=== PATIENT | male | born 1960 | race Caucasian/White ===

== ENCOUNTER 2018-05-12 14:21 | Outpatient (REF) | payer MEDICAID, SELFPAY ==
[2018-05-12 21:05] LABS: BUN 10 mg/dL (7-18); CREATININE 1.01 mg/dL (0.70-1.30); Calcium 9.1 mg/dL (8.5-10.1); Chloride 106 mmol/L (98-107); Cholesterol 171 mg/dL (50-200); Glucose 78 mg/dL (70-100); HDL Cholesterol 33 mg/dL (40-60); LDL CHOLESTEROL 113 mg/dL (<100); Sodium 142 mmol/L (136-145); Triglyceride 158 mg/dL (30-150)
[2018-05-16 12:07] LABS: PSA, Screening 9.3 ng/ml (0-3.5)
== END 2018-05-12 14:41 ==
LOC: NCHCN 14:21
PROVIDERS: PCP Specialist/Technologist Athletic Trainer; Visit Provider Specialist/Technologist Athletic Trainer
DX: E78.5 Hyperlipidemia, unspecified (principal); Z79.899 Other long term (current) drug therapy
CPT/HCPCS: 80048; 80061; 83721; 84153

== ENCOUNTER 2018-07-26 11:24 | Outpatient (REF) | payer MEDICAID, SELFPAY ==
[2018-07-28 19:22] LABS: Free PSA/PSA Ratio 0.16 ratio
== END 2018-07-26 11:44 ==
LOC: NCHCN 11:24
PROVIDERS: PCP Specialist/Technologist Athletic Trainer; Visit Provider Specialist/Technologist Athletic Trainer
DX: R97.20 Elevated prostate specific antigen [PSA] (principal)
CPT/HCPCS: 84154

== ENCOUNTER 2019-09-06 13:36 | Outpatient (REF) | payer MEDICAID, SELFPAY ==
[2019-09-06 20:43] LABS: Anion Gap 11.7 mmol/L (3-11); BUN 11 mg/dL (7-18); CO2 26.3 mmol/L (21.0-32.0); CREATININE 0.92 mg/dL (0.70-1.30); Calcium 9.8 mg/dL (8.5-10.1); Chloride 105 mmol/L (98-107); Glucose 107 mg/dL (74-106); Potassium 4.2 mmol/L (3.5-5.1); Sodium 143 mmol/L (136-145); TSH 1.89 uIU/mL (0.36-3.74)
[2019-09-06 21:07] LABS: Abs Immature Grans 0.02 k/cumm (0.0-0.09); Absolute Basophil Count 0.03 k/cumm (0.0-0.2); Absolute Eosinophil Count 0.09 k/cumm (0.0-0.7); Absolute Lymphocyte Count 1.78 k/cumm (1.2-3.4); Absolute Monocyte Count 0.58 k/cumm (0.11-0.7); Absolute Neutrophil Count 5.81 k/cumm (1.2-6.7); Basophils % 0.4; Eosinophils % 1.1; HCT 46.2 % (40.0-50.0); HGB 15.5 g/dL (13.5-17.5); Immature Grans % 0.2 %; Lymphocytes % 21.4; Mean Corp. HGB Concentration 33.5 g/dL (32.0-36.0); Mean Corpuscular Hemoglobin 30.6 pg (27.0-33.0); Mean Corpuscular Volume 91.3 fL (80-95); Mean Platelet Volume 11.4 fL (8.0-11.0); Neutrophils % 69.9; Platelet Count 214 x1000/uL (130-400); RBC 5.06 m/cumm (4.50-6.00); RBC Distribution Width 12.7 % (11.8-14.1); White Blood Cell Count 8.31 k/cumm (4.4-10.8)
== END 2019-09-06 13:56 ==
LOC: NCHCN 13:36
PROVIDERS: PCP Specialist/Technologist Athletic Trainer; Visit Provider Nurse Practitioner Psychiatric/Mental Health
DX: F31.4 Bipolar disorder, current episode depressed, severe, without psychotic features (principal); Z51.81 Encounter for therapeutic drug level monitoring
CPT/HCPCS: 80048; 84443; 85025

== ENCOUNTER 2019-09-27 21:58 | Outpatient (REF) | payer MEDICAID, SELFPAY ==
[2019-09-27 22:05] LABS: Anion Gap 12.8 mmol/L (3-11); BUN 12 mg/dL (7-18); CO2 23.2 mmol/L (21.0-32.0); CREATININE 1.05 mg/dL (0.70-1.30); Calcium 9.2 mg/dL (8.5-10.1); Chloride 106 mmol/L (98-107); Glucose 158 mg/dL (74-106); Potassium 4.2 mmol/L (3.5-5.1); Sodium 142 mmol/L (136-145)
== END 2019-09-27 22:18 ==
LOC: NCHCN 21:58
PROVIDERS: PCP Specialist/Technologist Athletic Trainer; Visit Provider Nurse Practitioner Family
DX: I10 Essential (primary) hypertension (principal)
CPT/HCPCS: 80048

== ENCOUNTER 2019-10-04 12:57 | Outpatient (REF) | payer MEDICAID, SELFPAY ==
[2019-10-04 20:20] LABS: VALPROIC ACID 50.8 ug/mL (50-100)
== END 2019-10-04 13:17 ==
LOC: NCHCN 12:57
PROVIDERS: PCP Specialist/Technologist Athletic Trainer; Visit Provider Nurse Practitioner Psychiatric/Mental Health
DX: Z51.81 Encounter for therapeutic drug level monitoring (principal)
CPT/HCPCS: 80164

== ENCOUNTER 2019-12-22 13:34 | Outpatient (REF) | payer MEDICAID, SELFPAY ==
[2019-12-22 19:16] LABS: Abs Immature Grans 0.04 k/cumm (0.0-0.09); Absolute Basophil Count 0.02 k/cumm (0.0-0.2); Absolute Eosinophil Count 0.27 k/cumm (0.0-0.7); Absolute Lymphocyte Count 2.78 k/cumm (1.2-3.4); Absolute Monocyte Count 0.93 k/cumm (0.11-0.7); Absolute Neutrophil Count 3.23 k/cumm (1.2-6.7); Basophils % 0.3; Eosinophils % 3.7; HCT 40.1 % (40.0-50.0); HGB 13.3 g/dL (13.5-17.5); Immature Grans % 0.6 %; Lymphocytes % 38.2; Mean Corp. HGB Concentration 33.2 g/dL (32.0-36.0); Mean Corpuscular Hemoglobin 31.7 pg (27.0-33.0); Mean Corpuscular Volume 95.7 fL (80-95); Mean Platelet Volume 11.2 fL (8.0-11.0); Monocytes % 12.8; Neutrophils % 44.4; Platelet Count 199 x1000/uL (130-400); RBC 4.19 m/cumm (4.50-6.00); RBC Distribution Width 12.8 % (11.8-14.1); White Blood Cell Count 7.27 k/cumm (4.4-10.8)
[2019-12-22 19:24] LABS: VALPROIC ACID 41.7 ug/mL (50-100)
== END 2019-12-22 13:54 ==
LOC: NCHCN 13:34
PROVIDERS: PCP Specialist/Technologist Athletic Trainer; Visit Provider Nurse Practitioner Psychiatric/Mental Health
DX: F31.61 Bipolar disorder, current episode mixed, mild (principal); Z79.899 Other long term (current) drug therapy; Z51.81 Encounter for therapeutic drug level monitoring
CPT/HCPCS: 80164; 85025

== ENCOUNTER 2020-02-23 13:23 | Outpatient (REF) | payer MEDICAID, SELFPAY ==
[2020-02-23 19:16] LABS: Iron 105 ug/dL (65-175)
[2020-02-23 20:10] LABS: Folate 16.8 ng/mL (8.6-20.0); TSH (W/Ref FT4) 2.03 uIU/mL (0.36-3.74); Vitamin B12 324 pg/mL (193-986)
[2020-02-25 18:42] LABS: T3,Free 3.6 pg/mL (2.8-5.3)
[2020-02-26 08:31] LABS: Vitamin D 25 Total 58.7 ng/ml (30-100)
== END 2020-02-23 13:43 ==
LOC: NCHCN 13:23
PROVIDERS: PCP Specialist/Technologist Athletic Trainer; Visit Provider Nurse Practitioner Psychiatric/Mental Health
DX: F31.61 Bipolar disorder, current episode mixed, mild (principal)
CPT/HCPCS: 82306; 82607; 82746; 83540; 84443; 84481

== ENCOUNTER 2020-04-12 12:06 | Outpatient (REF) | payer MEDICAID, SELFPAY ==
[2020-04-12 19:06] LABS: Abs Immature Grans 0.03 10^3/uL (0.0-0.06); Absolute Basophil Count 0.04 10^3/uL (0.0-0.2); Absolute Eosinophil Count 0.18 10^3/uL (0.0-0.7); Absolute Lymphocyte Count 2.59 10^3/uL (1.2-3.4); Absolute Monocyte Count 0.63 10^3/uL (0.1-0.8); Absolute Neutrophil Count 5.52 10^3/uL (1.2-6.7); Basophils % 0.4; HGB 15.3 g/dL (13.5-17.5); Immature Grans % 0.3; Lymphocytes % 28.8; MCH 30.1 pg (27.0-33.0); MCHC 33.3 % (32.0-36.0); MCV 90.6 fL (80-95); MPV 11.6 fL (8.0-11.0); Neutrophils % 61.5; Nucleated RBC 0 %; Platelet Count 226 10^3/uL (130-400); RBC 5.08 10^6/uL (4.36-5.78); RDW 12.2 % (11.8-14.1); RDW-SD 40.5 fL; WBC 8.99 10^3/uL (4.4-10.8)
[2020-04-12 19:32] LABS: ALT 37 U/L (16-63); AST 21 U/L (15-37); Albumin 4.4 g/dL (3.4-5.0); Alkaline Phosphatase 80 U/L (46-116); Anion Gap 12.4 mmol/L (3-11); BUN 11 mg/dL (7-18); Bilirubin, Total 0.4 mg/dL (0.2-1.0); CO2 25.6 mmol/L (21.0-32.0); CREATININE 1.15 mg/dL (0.70-1.30); Calcium 9.6 mg/dL (8.5-10.1); Chloride 102 mmol/L (98-107); Glucose 101 mg/dL (74-106); Potassium 4.1 mmol/L (3.5-5.1); Sodium 140 mmol/L (136-145); Total Protein 7.2 g/dL (6.4-8.2)
== END 2020-04-12 12:26 ==
LOC: NCHCN 12:06
PROVIDERS: PCP Specialist/Technologist Athletic Trainer; Visit Provider Nurse Practitioner Family
DX: Z51.81 Encounter for therapeutic drug level monitoring (principal); Z79.899 Other long term (current) drug therapy
CPT/HCPCS: 80053; 85025

== ENCOUNTER 2020-05-20 18:21 | Outpatient (REF) | payer MEDICAID, SELFPAY ==
[2020-05-20 20:41] LABS: ALT 37 U/L (16-63); AST 16 U/L (15-37); HDL Cholesterol 29 mg/dL (40-60); LDL CHOLESTEROL 76 mg/dL (<100)
[2020-05-20 21:17] LABS: Creatine Kinase 192 U/L (39-308)
== END 2020-05-20 18:41 ==
LOC: NCHCN 18:21
PROVIDERS: Nurse Practitioner Family; PCP Specialist/Technologist Athletic Trainer; Visit Provider Family Medicine
DX: I10 Essential (primary) hypertension (principal); E78.5 Hyperlipidemia, unspecified
CPT/HCPCS: 82550; 83721; 83718; 84450; 84460

== ENCOUNTER 2020-09-10 11:19 | Outpatient (REF) | payer MEDICAID, SELFPAY ==
[2020-09-10 15:52] LABS: Abs Immature Grans 0.03 10^3/uL (0.0-0.06); Absolute Basophil Count 0.06 10^3/uL (0.0-0.2); Absolute Eosinophil Count 0.15 10^3/uL (0.0-0.7); Absolute Monocyte Count 0.63 10^3/uL (0.1-0.8); Basophils % 0.7; Eosinophils % 1.8; HCT 44.1 % (40.0-50.0); HGB 14.9 g/dL (13.5-17.5); Immature Grans % 0.4; Lymphocytes % 28.2; MCH 30.3 pg (27.0-33.0); MCHC 33.8 % (32.0-36.0); MCV 89.8 fL (80-95); MPV 11.1 fL (8.0-11.0); Monocytes % 7.7; Neutrophils % 61.2; Nucleated RBC 0 %; Platelet Count 220 10^3/uL (130-400); RBC 4.91 10^6/uL (4.36-5.78); RDW-SD 39.8 fL; WBC 8.17 10^3/uL (4.4-10.8)
[2020-09-10 16:16] LABS: Anion Gap 9.6 mmol/L (3-11); BUN 15 mg/dL (7-18); CO2 25.4 mmol/L (21.0-32.0); CREATININE 1.11 mg/dL (0.70-1.30); Calcium 9.6 mg/dL (8.5-10.1); Chloride 104 mmol/L (98-107); Glucose 103 mg/dL (74-106); Sodium 139 mmol/L (136-145); TROPONIN-I 2.1 ug/mL (4.0-12.0)
== END 2020-09-10 11:39 ==
LOC: NCHCN 11:19
PROVIDERS: PCP Specialist/Technologist Athletic Trainer; Visit Provider Nurse Practitioner Psychiatric/Mental Health
DX: F31.89 Other bipolar disorder (principal); Z79.899 Other long term (current) drug therapy; Z51.81 Encounter for therapeutic drug level monitoring
CPT/HCPCS: 80048; 80156; 85025

== ENCOUNTER 2020-09-18 15:22 | Outpatient (REF) | payer MEDICAID, SELFPAY ==
[2020-09-18 16:28] LABS: Anion Gap 8.8 mmol/L (3-11); BUN 10 mg/dL (7-18); CO2 27.2 mmol/L (21.0-32.0); Calcium 9.7 mg/dL (8.5-10.1); Chloride 106 mmol/L (98-107); Glucose 112 mg/dL (74-106); Potassium 4.3 mmol/L (3.5-5.1); Sodium 142 mmol/L (136-145)
== END 2020-09-18 15:23 | disposition home or self-care (01) ==
LOC: NCHCN 15:22
PROVIDERS: PCP Specialist/Technologist Athletic Trainer; Visit Provider Nurse Practitioner Family
DX: R79.89 Other specified abnormal findings of blood chemistry (principal)
CPT/HCPCS: 80048

== ENCOUNTER 2020-11-13 14:00 | Outpatient (REF) | payer MEDICAID, SELFPAY | END 2020-11-13 14:01 | disposition home or self-care (01) | LOC: NCHCN 14:00 | PROVIDERS: PCP Nurse Practitioner Psychiatric/Mental Health; Visit Provider Nurse Practitioner Psychiatric/Mental Health | DX: Z51.81 Encounter for therapeutic drug level monitoring (principal); Z79.899 Other long term (current) drug therapy; F31.89 Other bipolar disorder | CPT/HCPCS: 80156 ==

== ENCOUNTER 2021-05-12 16:06 | Outpatient (REF) | payer MEDICAID, SELFPAY ==
[2021-05-12 20:29] LABS: Hemoglobin A1C 5.8 % (<5.7)
[2021-05-12 20:32] LABS: ALT 59 U/L (16-63); AST 14 U/L (15-37); Anion Gap 10.3 mmol/L (3-11); BUN 13 mg/dL (7-18); CO2 25.7 mmol/L (21.0-32.0); CREATININE 0.9 mg/dL (0.70-1.30); Calcium 9.5 mg/dL (8.5-10.1); Chloride 107 mmol/L (98-107); Glucose 90 mg/dL (74-106); HDL Cholesterol 29 mg/dL (40-60); LDL CHOLESTEROL 87 mg/dL (<100); Potassium 4.1 mmol/L (3.5-5.1); Sodium 143 mmol/L (136-145)
[2021-05-12 20:56] LABS: Creatine Kinase 92 U/L (39-308)
== END 2021-05-12 16:07 | disposition home or self-care (01) ==
LOC: NCHCN 16:06
PROVIDERS: PCP Nurse Practitioner Psychiatric/Mental Health; Visit Provider Nurse Practitioner Family
DX: I10 Essential (primary) hypertension (principal); E78.5 Hyperlipidemia, unspecified; R89.9 Unspecified abnormal finding in specimens from other organs, systems and tissues
CPT/HCPCS: 80048; 82550; 83721; 83036; 83718; 84450; 84460

== ENCOUNTER 2021-05-27 16:31 | Outpatient (REF) | payer MEDICAID, SELFPAY ==
[2021-05-27 19:47] LABS: Anion Gap 9.2 mmol/L (3-11); BUN 10 mg/dL (7-18); CO2 26.8 mmol/L (21.0-32.0); Calcium 9.4 mg/dL (8.5-10.1); Chloride 105 mmol/L (98-107); Glucose 84 mg/dL (74-106); Potassium 4.2 mmol/L (3.5-5.1); Sodium 141 mmol/L (136-145)
== END 2021-05-27 16:32 | disposition home or self-care (01) ==
LOC: NCHCN 16:31
PROVIDERS: PCP Nurse Practitioner Psychiatric/Mental Health; Visit Provider Nurse Practitioner Family
DX: I10 Essential (primary) hypertension (principal)
CPT/HCPCS: 80048

== ENCOUNTER 2021-07-11 12:37 | Outpatient (REF) | payer MEDICAID, SELFPAY ==
[2021-07-11 15:29] LABS: ALT 47 U/L (16-63); AST 14 U/L (15-37); Calculated LDL 59 mg/dL (<100); Cholesterol 136 mg/dL (<200); Creatine Kinase 86 U/L (39-308); HDL Cholesterol 29 mg/dL (40-60); Triglyceride 243 mg/dL (<150)
[2021-07-14 02:29] LABS: Vitamin D 25 Total 44.8 ng/mL (30-100)
== END 2021-07-11 12:38 | disposition home or self-care (01) ==
LOC: NCHCN 12:37
PROVIDERS: PCP Nurse Practitioner Psychiatric/Mental Health; Visit Provider Nurse Practitioner Psychiatric/Mental Health
DX: F31.0 Bipolar disorder, current episode hypomanic (principal)
CPT/HCPCS: 80061; 82306; 82550; 84450; 84460

== ENCOUNTER 2021-12-30 16:41 | Outpatient (REF) | payer MEDICAID, SELFPAY ==
[2021-12-30 18:36] LABS: Anion Gap 13.2 mmol/L (3-11); BUN 13 mg/dL (7-18); CO2 22.8 mmol/L (21.0-32.0); Calcium 8.9 mg/dL (8.5-10.1); Chloride 106 mmol/L (98-107); Glucose 106 mg/dL (74-106); Potassium 4.1 mmol/L (3.5-5.1); Sodium 142 mmol/L (136-145)
[2021-12-31 18:04] LABS: PSA, Screening 7.8 ng/mL (<=4.5)
== END 2021-12-30 16:42 | disposition home or self-care (01) ==
LOC: NCHCN 16:41
PROVIDERS: PCP Nurse Practitioner Psychiatric/Mental Health; Visit Provider Nurse Practitioner Family
DX: I10 Essential (primary) hypertension (principal); K21.9 Gastro-esophageal reflux disease without esophagitis; R97.20 Elevated prostate specific antigen [PSA]; Z12.5 Encounter for screening for malignant neoplasm of prostate
CPT/HCPCS: 80048; 84153

== ENCOUNTER 2023-06-22 15:46 | Outpatient (REF) | payer MEDICAID, SELFPAY ==
[2023-06-22 15:27] LABS: ALT 44 U/L (16-63); AST 22 U/L (15-37); Albumin 4.2 g/dL (3.4-5.0); Alkaline Phosphatase 96 U/L (46-116); Anion Gap 9.6 mmol/L (3-11); BUN 10 mg/dL (7-18); Bilirubin, Total 0.6 mg/dL (0.2-1.0); CO2 26.4 mmol/L (21.0-32.0); CREATININE 1.2 mg/dL (0.70-1.30); Calcium 9.6 mg/dL (8.5-10.1); Calculated LDL 133 mg/dL (<100); Chloride 103 mmol/L (98-107); Cholesterol 196 mg/dL (<200); Estimated GFR 67.53 (mL/min/1.73m2); Glucose 111 mg/dL (74-106); HDL Cholesterol 37 mg/dL (40-60); Potassium 4.8 mmol/L (3.5-5.1); Sodium 139 mmol/L (136-145); Total Protein 7.2 g/dL (6.4-8.2); Triglyceride 132 mg/dL (<150)
== END 2023-06-22 15:47 | disposition home or self-care (01) ==
LOC: NCHCN 15:46
PROVIDERS: PCP Nurse Practitioner Psychiatric/Mental Health; Visit Provider Family Medicine
DX: I10 Essential (primary) hypertension (principal); E78.5 Hyperlipidemia, unspecified
CPT/HCPCS: 80053; 80061